=== PATIENT | female | born 1960 | race Caucasian/White ===

== ENCOUNTER → 2016-09-23 | Outpatient (CLI) | payer BC ==
[~2016-09-23] MED LIST: ACT/45 PO; HYDR-3124 PO; LISI10TA PO; METF-384 PO; SIMV40TA4 PO; SITA100T3 PO
--- NOTE | 2016-09-23 12:32 | MAMMOGRAPHY REPORT ---
BILATERAL DIGITAL SCREENING MAMMOGRAM WITH CAD: 09/23/2016 CLINICAL HISTORY: Routine screening. Patient has no complaints. TECHNIQUE: Current study was also evaluated with a Computer Aided Detection (CAD) system. Bilatera l CC and MLO views were obtained. COMPARISON: Comparison is made to exams dated: 09/19/2015 mammogram, 09/11/2013 mammogram, 09/17/2014 mammogram, 01/11/2012 mammogram, 01/06/2011 mammogram, and 01/05/2010 mammogram - [facility] enter. BREAST COMPOSITION: There are scattered areas of fibroglandular density in both breasts. FINDINGS: No suspicious masses, calcifications, or areas of architectural distortion are noted in e ither breast. There has been no significant interval change compared to prior exams. Bilateral maria dolores gn-appearing calcifications are not significantly changed. Asymmetry within the left superior breas t middle depth on the MLO view is similar to the 2010 exam and consistent with normal overlapping fi broglandular tissue. IMPRESSION: ACR BI-RADS CATEGORY 2: BENIGN There is no mammographic evidence of malignancy. A 1 year screening mammogram is recommended. The p atient will receive written notification of the results. Approximately 10% of breast cancers are not detected with mammography. A negative mammographic repor t should not delay biopsy if a clinically suggestive mass is present. Kasey Waters M.D. /:09/23/2016 07:36:56 Pocket Operator: Miracle GURERA)(M), [facility] letter sent: Normal 1/2 BI-RADS Code: ACR BI-RADS Category 2: Benign
== END | disposition home or self-care (01) ==
LOC: C.MAMM 07:13
PROVIDERS: ATTEND Nurse Practitioner Family
DX: Z12.31 Encounter for screening mammogram for malignant neoplasm of breast (principal)

== ENCOUNTER → 2016-10-01 | Outpatient (CLI) | payer BC ==
--- NOTE | 2016-10-01 16:42 | DIAGNOSTIC IMAGING REPORT ---
RIGHT FOOT MIN 3 VIEWS ROUTINE CLINICAL HISTORY: S93.609A Right trauma. Pain. COMPARISON: None. DISCUSSION: Probable nondisplaced hairline cortical fracture base fifth metatarsal. Mild degenerative change of all remaining osseous structures. Heel spur is present. There is no evidence for soft tissue swelling. IMPRESSION: Hairline nondisplaced cortical fracture base fifth metatarsal Electronically signed by: Frank Travis M.D. 10/01/2016 4:41 PM Dictated Date/Time: 10/01/2016 4:40 PM
--- NOTE | 2016-10-01 16:43 | DIAGNOSTIC IMAGING REPORT ---
RIGHT ANKLE MIN 3 VIEWS ROUTINE CLINICAL HISTORY: S93.609A Right trauma. Pain. COMPARISON: None. DISCUSSION: Heel spur. Mild degenerative change. No acute bony abnormality. There is no evidence for soft tissue swelling. IMPRESSION: No acute bony abnormality. Electronically signed by: Frank Travis M.D. 10/01/2016 4:42 PM Dictated Date/Time: 10/01/2016 4:41 PM
== END | disposition home or self-care (01) ==
LOC: C.RAD1850 16:22
PROVIDERS: ATTEND Student in an Organized Health Care Education/Training Program
DX: S92.354A Nondisplaced fracture of fifth metatarsal bone, right foot, initial encounter for closed fracture (principal); X58.XXXA Exposure to other specified factors, initial encounter

== ENCOUNTER → 2017-09-26 | Outpatient (CLI) | payer OTHER ==
--- NOTE | 2017-09-27 07:56 | MAMMOGRAPHY REPORT ---
BILATERAL DIGITAL SCREENING MAMMOGRAM TOMOSYNTHESIS WITH CAD: 09/26/2017 CLINICAL HISTORY: Routine screening. Patient has no complaints. TECHNIQUE: Breast tomosynthesis in addition to standard 2D mammography was performed. Current study was also evaluated with a Computer Aided Detection (CAD) system. COMPARISON: Comparison is made to exams dated: 09/23/2016 mammogram, 09/19/2015 mammogram, 09/17/2014 m ammogram, 09/11/2013 mammogram, 01/11/2012 mammogram, and 01/06/2011 mammogram - [facility] nter. BREAST COMPOSITION: There are scattered areas of fibroglandular density in both breasts. FINDINGS: No suspicious mass, architectural distortion or cluster of microcalcifications is seen. IMPRESSION: ACR BI-RADS CATEGORY 1: NEGATIVE There is no mammographic evidence of malignancy. A 1 year screening mammogram is recommended. The pa tient will receive written notification of the results. Approximately 10% of breast cancers are not detected with mammography. A negative mammographic report should not delay biopsy if a clinically suggestive mass is present. Melodie solis/chitra:09/26/2017 18:12:57 Aviation Survival Technician: Caridad Batres, [facility] letter sent: Normal 1/2 BI-RADS Code: ACR BI-RADS Category 1: Negative
== END | disposition home or self-care (01) ==
LOC: C.MAMM 07:22
PROVIDERS: ATTEND Nurse Practitioner Family
DX: Z12.31 Encounter for screening mammogram for malignant neoplasm of breast (principal)